=== PATIENT | male | born 1965 | race Caucasian/White ===

== ENCOUNTER → 2023-07-16 13:35 | Outpatient (CLI) | payer BC, SELFPAY ==
--- NOTE | ~2023-07-16 | XR_ITS ---
XR hand LT min 3V DATE: 07/16/2023 14:07 INDICATION: Stiffness of joints of both hands TECHNIQUE: 3 views of left hand COMPARISON: None FINDINGS: Minimal particular spurring of the interphalangeal joint of the first digit consistent with mild osteoarthritis. No fracture or dislocation, periosteal reaction or bone destruction, erosive change or chondrocalcino sis. 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
== END ==
PROVIDERS: PCP Pediatrics; Visit Provider Pediatrics
DX: M19.042 Primary osteoarthritis, left hand (principal)
CPT/HCPCS: 73130

== ENCOUNTER 2024-09-15 14:39 | Outpatient (CLI) | payer BC, SELFPAY ==
--- NOTE | ~2024-09-15 | XR_ITS ---
XR foot RT min 3V DATE: 09/15/2024 15:14 INDICATION: Right foot pain TECHNIQUE: 4 views COMPARISON: None FINDINGS: There is prominent osteoarthritis at the first metatarsophalangeal joint. No fracture or dislocation, periosteal reaction or bone destruction is detected. IMPRESSION: First metatarsophalangeal joint osteoarthritis Reviewed, dictated and finalized at location A. ON PSYCHIATRIST
== END 2024-09-15 14:40 | disposition home or self-care (01) ==
PROVIDERS: PCP Pediatrics; Visit Provider Pediatrics
DX: M19.071 Primary osteoarthritis, right ankle and foot (principal)
CPT/HCPCS: 73630

== ENCOUNTER 2025-08-13 13:45 | Outpatient (CLI) | payer BC, SELFPAY ==
--- NOTE | ~2025-08-13 | XR_ITS ---
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 Findings: No acute fracture or malalignment. No significant degenerative changes. Soft tissues unremarkable. Impression: No acute fracture or malalignment. Reviewed, dictated and finalized at location P. READER Impression: No acute fracture or malalignment.
== END 2025-08-13 13:46 | disposition home or self-care (01) ==
PROVIDERS: PCP Pediatrics; Visit Provider Pediatrics
DX: S69.91XD Unspecified injury of right wrist, hand and finger(s), subsequent encounter (principal); X58.XXXD Exposure to other specified factors, subsequent encounter
CPT/HCPCS: 73140

== ENCOUNTER 2025-09-28 12:40 | Outpatient (CLI) | payer BC, SELFPAY ==
--- NOTE | ~2025-09-28 | MR_ITS ---
EXAMINATION: MR hand RT wo con DATE: 09/28/2025 13:15 INDICATION: Swelling of the fifth proximal interphalangeal joint of the right hand TECHNIQUE: Magnetic resonance imaging (MRI) of the right hand was performed without intravenous contrast to include the metacarpals and digits. Sequences included sagittal, coronal, and axial. T1-weighted FSE and T2-weighted FS FSE and sagittal and coronal fluid sensitive FSE STIR. COMPARISON: 08/13/2025 FINDINGS: There is normal bone marrow signal throughout with no fracture, reactive edema or pathologic marrow replacing process. Minimal to mild polyarticular osteoarthritis at the wrist joint and the triscaphe first carpal metacarpal joints and a few of the metacarpophalangeal and interphalangeal joints. There is minimal increased fluid extending along the fifth flexor digitorum longus tendon consistent with mild tenosynovitis. There is persistent mild flexion at the fifth proximal interphalangeal joint. There is increased separation of the flexor tendon at the fifth proximal phalanx relative to the volar cortex of the proximal phalanx which extends to the level of the mid diaphysis suspicious for a partial tear of the distal aspect of the A2 evans. The A2 evans appears intact at the level of the proximal diaphyseal region. There is thickening and increased signal of less than fluid intensity at the central slip of the extensor tendon to the fifth digit at the level of the head of the proximal phalanx suggestive partial tear. There is mild thickening and mild increased signal of less than fluid intensity involving the radial collateral ligament at the fifth proximal interphalangeal joint suspicious for low-grade sprain/partial tear. The remaining collateral ligament complexes at the metacarpophalangeal and interphalangeal joints remain intact. IMPRESSION: 1. Likely partial tear at the middle phalangeal insertion of the central slip of the extensor tendon of the fifth digit with persistent mild flexion at the proximal interphalangeal joint. 2. Partial tear of the distal aspect of the fifth digit A2 evans resulting in mild bowstringing of the flexor tendon at the level of the distal diaphysis and neck of the proximal phalanx. 3. Likely low-grade sprain/mild partial tear of the radial collateral ligament at the fifth proximal interphalangeal joint. Reviewed, dictated and finalized at location A. 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 Likely partial tear at the middle phalangeal insertion of the central slip o f the extensor tendon of the fifth digit with persistent mild flexion at the pr oximal interphalangeal joint. 2. Partial tear of the distal aspect of the fifth digit A2 evans resulting in mild bowstringing of the flexor tendon at the level of the distal diaphysis and neck of the proximal phalanx. 3. Likely low-grade sprain/mild partial tear of the radial collateral ligament at the fifth proximal interphalangeal joint.
== END 2025-09-28 12:41 | disposition home or self-care (01) ==
PROVIDERS: PCP Pediatrics; Visit Provider Student in an Organized Health Care Education/Training Program
DX: M25.441 Effusion, right hand (principal); S63.591D Other specified sprain of right wrist, subsequent encounter; X58.XXXD Exposure to other specified factors, subsequent encounter
CPT/HCPCS: 73218